=== PATIENT | female | born 1945 | race Caucasian/White ===

== ENCOUNTER → 2017-04-17 | Outpatient (CLI) | payer OTHER, MEDICARE ==
[~2017-04-17] MED LIST: ASPEC325 PO; CALC500C70 PO; FRRG PO; LEVO100T PO; LOSA100T26 PO; RANI150T3 PO; SERT50TA PO; TPRSR/50 PO; VITAMIN D2 PO
--- NOTE | 2017-04-17 14:32 | DIAGNOSTIC IMAGING REPORT ---
LUMBAR SPINE MRI HISTORY: Low back pain. STENOSIS TECHNIQUE: Multiplanar multisequence MRI of the lumbar spine was performed without the use of contrast. COMPARISON: Lumbar spine 04/10/2017 outside hospital. FINDINGS: For the purpose of the report the L5-S1 disc space will be located on axial image 24 of 26. No fracture or subluxation. T1 and T2 hyperintense lesions at T12 and L4 consistent with hemangiomas. These measure 12 mm. Diffuse disc desiccation. Disc spaces are relatively preserved for age. The conus terminates at the L1-L2 disc space level. Moderate facet degenerative changes at L3-L4. Severe facet degenerative changes at L4-5 and L5-S1. Subcutaneous edema within the lumbar region. Mild endplate edema at the superior endplate of L4. This is likely due to long-standing degenerative change. Paraspinal soft tissues are unremarkable. L1-L2: Small broad-based posterior disc bulge without significant central canal or neural foraminal narrowing. L2-L3: Small broad-based posterior disc bulge without significant central canal or neural foraminal narrowing. L3-L4: Small broad-based posterior disc bulge without significant central canal or left-sided neural foraminal narrowing. Mild right-sided neural foraminal narrowing. L4-L5: Small broad-based posterior disc bulge with bilateral facet hypertrophy. No significant central canal or neural foraminal narrowing. Focal central and right paracentral annular tear. L5-S1: No significant central canal or neural foraminal narrowing. IMPRESSION: 1. Moderate to severe facet osteoarthritis within the lower lumbar spine. 2. Minimal to mild degenerative disc disease as described above with a few disc bulges. However, no significant central canal narrowing. Electronically signed by: Srini Harris M.D. 04/17/2017 2:31 PM Dictated Date/Time: 04/17/2017 2:24 PM
== END | disposition home or self-care (01) ==
LOC: C.MRIBC 13:44
PROVIDERS: ATTEND Orthopaedic Surgery Orthopaedic Surgery of the Spine
DX: M48.06 Spinal stenosis, lumbar region (principal); M47.896 Other spondylosis, lumbar region

== ENCOUNTER 2023-12-25 04:59 | Observation (INO) ==
--- NOTE | 2023-12-08 11:54 | PAT Medication Instructions ---
Medication Instructions Date of Service December 08, 2023 Home Medications hydrochlorothiazide 12.5 mg tablet 12.5 mg PO QAM levothyroxine 150 mcg capsule 150 mcg PO QAM losartan 100 mg tablet 100 mg PO QAM metoprolol succinate 100 mg tablet,extended release 24 hr 100 mg PO HS pantoprazole 40 mg tablet,delayed release 40 mg PO HS sertraline 50 mg tablet 50 mg PO QAM acetaminophen 500 mg tablet 500 mg PO Q6H PRN Pain calcium carbonate 300 mg (750 mg) chewable tablet (Tums) 300 mg PO HS cholecalciferol (vitamin D3) 50 mcg (2,000 unit) capsule (Vitamin D3) 50 mcg PO QAM diphenhydramine 25 mg-acetaminophen 500 mg tablet (Tylenol PM Extra Strength) 1 tab PO HS liothyronine 5 mcg tablet 5 mcg PO QAM vitamin A-vitamin C-vit E-min tablet 1 tab PO DAILY STOP taking 2 weeks before surgery (or as soon as possible if surgery is within 2 weeks) vitamin A-vitamin C-vit E-min tablet 1 tab PO DAILY DO NOT take the morning of surgery hydrochlorothiazide 12.5 mg tablet 12.5 mg PO QAM losartan 100 mg tablet 100 mg PO QAM cholecalciferol (vitamin D3) 50 mcg (2,000 unit) capsule (Vitamin D3) 50 mcg PO QAM Take morning of surgery With a small sip of water, OTHERWISE NOTHING TO EAT OR DRINK AFTER MIDNIGHT: levothyroxine 150 mcg capsule 150 mcg PO QAM sertraline 50 mg tablet 50 mg PO QAM acetaminophen 500 mg tablet 500 mg PO Q6H PRN Pain (if needed) liothyronine 5 mcg tablet 5 mcg PO QAM Take evening before surgery metoprolol succinate 100 mg tablet,extended release 24 hr 100 mg PO HS pantoprazole 40 mg tablet,delayed release 40 mg PO HS acetaminophen 500 mg tablet 500 mg PO Q6H PRN Pain (if needed) calcium carbonate 300 mg (750 mg) chewable tablet (Tums) 300 mg PO HS diphenhydramine 25 mg-acetaminophen 500 mg tablet (Tylenol PM Extra Strength) 1 tab PO HS Other Notes If you have any questions please call us at [phone] or [phone] or [phone] or [phone]
--- NOTE | 2023-12-11 14:57 | Anesthesiology Consultation ---
Date of Service December 11, 2023 Assessment & Plan (1) Encounter for pre-operative examination: - Infectious disease screening: Per assessment on 12/11/23: No known infectious disease contacts or current infectious disease symptoms. No noted recent Covid positive test result. - Outpatient joint assessment: Pt currently scheduled for inpatient pathway. If surgeon requests review for outpatient joint pathway, patient is not recommended candidate for outpatient joint program from anesthesia standpoint based upon available information. - Abnormal preop CXR: Notes "3.1 cm right suprahilar density. This is likely artifactual. However, a chest CT is recommended to exclude a pulmonary nodule or lymphadenopathy." > Note written to PCP regarding preop CXR- Awaiting response (Dr. Moises Park). Patient otherwise acceptable risk for surgery. Chart Review Chart Review: Patient seen in Pre Admission Testing Teaching & Discussion Pre-Anesthesia Teaching/Discussion Notes: Instructed NPO after midnight before surgery,except medications with 15 cc of water. Medication instructions provided according to the PAT guidelines. History Surgery Operation Date: 12/25/23 10:40 Proposed Procedures p Right Total Hip Arthroplasty - Chris Archuleta MD Height/Weight Height: 5 ft 5 in Weight: 109.2 kg Allergies Allergy/AdvReac Type Severity Reaction Status Date / Time cephalexin AdvReac Intermediate "Made Verified 12/11/23 14:52 mouth feel funny" prednisone AdvReac Intermediate "makes my Verified 11/27/23 13:18 head feel funny" Medications Home Medications Medication Instructions Recorded Confirmed Last Taken hydrochlorothiazide 12.5 mg tablet 12.5 mg PO QAM 06/04/23 11/27/23 Unknown levothyroxine 150 mcg capsule 150 mcg PO QAM 06/04/23 11/27/23 Unknown losartan 100 mg tablet 100 mg PO QAM 06/04/23 11/27/23 Unknown metoprolol succinate 100 mg 100 mg PO HS 06/04/23 11/27/23 Unknown tablet,extended release 24 hr pantoprazole 40 mg tablet,delayed 40 mg PO HS 06/04/23 11/27/23 Unknown release sertraline 50 mg tablet 50 mg PO QAM 06/04/23 11/27/23 Unknown acetaminophen 500 mg tablet 500 mg PO Q6H PRN Pain 11/27/23 11/27/23 Unknown calcium carbonate (Tums) 300 mg PO HS 11/27/23 11/27/23 Unknown cholecalciferol (vitamin D3) 50 50 mcg PO QAM 11/27/23 11/27/23 Unknown mcg (2,000 unit) capsule (Vitamin D3) diphenhydramine 25 1 tab PO HS 11/27/23 11/27/23 Unknown mg-acetaminophen 500 mg tablet (Tylenol PM Extra Strength) liothyronine 5 mcg tablet 5 mcg PO QAM 11/27/23 11/27/23 Unknown vitamin A-vitamin C-vit E-min 1 tab PO DAILY 11/27/23 11/27/23 Unknown tablet Past Medical History Medical History Anxiety and depression Arthritis of right hip GERD (gastroesophageal reflux disease) History of COVID-19 07/2022- mild symptoms, resolved History of gout Hypertension Hypothyroid Left knee DJD Macular degeneration Exercise / Class Metabolic Activity III < 4 Walking/Shop/Light housework Past Family History Family History Other Arthritis No family history of adverse response to anesthesia Past Surgical History Surgical History H/O hernia repair incisional H/O tubal ligation H/O: hysterectomy KATHIA BSO History of appendectomy History of cardiac cath 2015- no stents History of colonoscopy History of dilatation and curettage History of esophageal dilatation History of esophagogastroduodenoscopy (EGD) History of tooth extraction all teeth removed History of total right knee replacement 2016 Hx of cataract surgery R/L Hx of cholecystectomy Past Anesthesia History No Family Hx of Anesthesia Complications and Other (Awareness with Right TKA) History of PONV No Hx of PONV and No Hx of Motion Sickness Social History Smoking Status: Never smoker Do You Dip or Chew Tobacco: No Hx Alcohol Use: No Hx Substance Use: No substance use type: does not use Review of Systems Rare palpitations. Patient denies chest pain, shortness of breath, fever, chills, cough, wheezing. Physical Exam Vital Signs BP 132/79 P 65 TEMP SP02 95%RA RESP 18 Physical Full cervical extension range of motion. Full TMJ range of motion. TMD 3 finger breaths Mallampati Score 4 (small oral opening) Dentition: upper/lower full dentures Lungs: clear throughout to auscultation Cardiac: regular rate and rhythm, no murmurs noted Spine: normal Carotid arteries: negative bruit Extremities: no LE edema Trace pedal edema Lab Results Anesthesia Preop Results Results Anesthesia Widget: WBC 5.65 K/ul (4.8-10.8) 12/11/23 Hgb 12.0 g/dl (12.0-16.0) 12/11/23 Hct 38.1 % (37.0-47.0) 12/11/23 Plt 290 K/uL (130-400) 12/11/23 PT 10.6 Seconds (9.0-12.0) 12/11/23 PTT 26 Seconds (21-31) 12/11/23 INR 1.0 (0.9-1.1) 12/11/23 Blood Type O Positive 12/11/23 Antibody Screen NEGATIVE 12/11/23 Testing Laboratory Results 10/29/23 SODIUM 142 POTASSIUM 4.7 CHLORIDE 105 CO2 25 BUN 12 CREATININE 0.9 GLUCOSE 90 TSH 0.11L FREE T4 1.5 FREE T3 2.6 Electrocardiogram Date: 12/11/23 NSR with sinus arrhythmia at 69bpm. "Normal ECG" Chest X-Ray Date: 12/11/23 IMPRESSION: 3.1 cm right suprahilar density. This is likely artifactual. However, a chest CT is recommended to exclude a pulmonary nodule or lymphadenopathy. No acute cardiopulmonary findings. Stable mild cardiomegaly.
--- NOTE | 2023-12-19 09:27 | History & Physical Report ---
Date of Service December 19, 2023 Assessment & Plan (1) Arthritis of right hip: 78-year-old female status post right knee replaced in the past with advanced right hip arthritis. She got some left knee DJD 2 but the right hip is bothering the most. She has had to resort to using a cane to get around. She would like to have her hip fixed. Plan: Amparo taken to the operating do a right total hip replacement for the risks Mente this procedure explained the patient clued but not limited to DVT PE infection neurological and vascular bleeding palm pain limb range of motion stiffness fairly her symptoms incomplete relief of symptoms excetra. Patient understands and desires to proceed. Informed consent was obtained. Her chest x-ray initially was abnormal. She got a repeat x-ray at [facility] which was normal. Proceed with a total hip replacement. Will likely use a wound VAC postoperatively due to the soft tissue envelope. Bone looks good but will try a Crye stem but will have a cemented stem available. She is hoping to be discharged to home. One of her sons is going to come and stay with her for couple weeks. Will follow-up with me at 2 weeks postop. (2) Left knee DJD: History of Present Illness Chief Complaint: . Right hip and leg pain. Primary Care Provider: Jeannette Park . Patient is a 78-year-old female who is a status post a right knee replacement back in 2014. She presents now with over a year history of increasing right hip pain discomfort which gradually gotten worse over time. She had been seen by 2 dietitian assistant who diagnosed her just with that degenerative arthritis despite slightly elevated sed rate and CRP. He went through a course of physical therapy which did not help if anything made things worse. As she has had to resort to using a cane for the past year. She is having more trouble living independently as she lives by herself. She would like to have her hip fixed. She does have some left knee pain as well. The right hip bothers him more than the left knee. Allergies Allergy/AdvReac Type Severity Reaction Status Date / Time cephalexin AdvReac Intermediate "Made Verified 12/11/23 14:52 mouth feel funny" prednisone AdvReac Intermediate "makes my Verified 11/27/23 13:18 head feel funny" Home Medications Medication Instructions Recorded Confirmed Type hydrochlorothiazide 12.5 mg tablet 12.5 mg PO QAM 06/04/23 11/27/23 History levothyroxine 150 mcg capsule 150 mcg PO QAM 06/04/23 11/27/23 History losartan 100 mg tablet 100 mg PO QAM 06/04/23 11/27/23 History metoprolol succinate 100 mg 100 mg PO HS 06/04/23 11/27/23 History tablet,extended release 24 hr pantoprazole 40 mg tablet,delayed 40 mg PO HS 06/04/23 11/27/23 History release sertraline 50 mg tablet 50 mg PO QAM 06/04/23 11/27/23 History acetaminophen 500 mg tablet 500 mg PO Q6H PRN Pain 11/27/23 11/27/23 History calcium carbonate (Tums) 300 mg PO HS 11/27/23 11/27/23 History cholecalciferol (vitamin D3) 50 50 mcg PO QAM 11/27/23 11/27/23 History mcg (2,000 unit) capsule (Vitamin D3) diphenhydramine 25 1 tab PO HS 11/27/23 11/27/23 History mg-acetaminophen 500 mg tablet (Tylenol PM Extra Strength) liothyronine 5 mcg tablet 5 mcg PO QAM 11/27/23 11/27/23 History vitamin A-vitamin C-vit E-min 1 tab PO DAILY 11/27/23 11/27/23 History tablet Past Med/Surg History Medical History History of gout Macular degeneration History of COVID-19 07/2022- mild symptoms, resolved 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 Anxiety and depression Hypothyroid GERD (gastroesophageal reflux disease) Hypertension Surgical History History of dilatation and curettage History of esophageal dilatation History of colonoscopy History of appendectomy History of esophagogastroduodenoscopy (EGD) History of tooth extraction all teeth removed History of cardiac cath 2015- no stents H/O tubal ligation H/O hernia repair incisional Hx of cholecystectomy H/O: hysterectomy KATHIA BSO History of total right knee replacement 2016 Hx of cataract surgery R/L Family History Other Arthritis No family history of adverse response to anesthesia Social History Smoking Status: Never smoker Second Hand Exposure: No; Do You Dip or Chew Tobacco: No; Hx Alcohol Use: No Hx Substance Use: No Preferred Language: Thai Communication Ability: Effective Software Support Analyst Required: No Beliefs That Will Affect Care: None Current Living Situation: Alone Feels Safe at Home: Yes Assistive Devices: Denture - Upper, Denture - Lower, Glasses and Walker Review of Systems All systems reviewed & are unremarkable except as noted in HPI & below. Physical Exam . Physical examination was a pleasant elderly female. Examination of right hip reveal patient walks with use of a cane. She does limp on the right side. About a half a centimeter shorter on the right compared to the left. She has pain and stiffness with hip motion. Negative straight leg raise. She is neurologically intact. Examination of the left knee reveals a slight varus alignment to her knee. Got bony perjury medially. Range of motion 5-1 20. No instability. Constitutional WD/WN, vitals as above Neck trachea midline, no thyromegaly Respiratory normal respiratory effort, lungs clear to auscultation Gastrointestinal (Abdomen) normal bowel sounds, soft, nontender, no hepatosplenomegaly Results & Data Results & Data Laboratory Results . Diagnostic Findings . X-rays of the right hip were reviewed. Shows advanced hip arthritis. She got complete loss of the joint space. She got the sclerosis or of the acetabulum. Bone density looks pretty good. Patient did have a chest x-ray which suggested maybe a slight abnormality or nodule. Thought most likely incidental finding. She had a repeat x-ray done at [facility] which is a normal. PG Care Time/CCT Total # of Minutes Spent Total Time Spent with Patient: Total time spent is greater than 50% in coordination of care (as documented) at patient's floor/unit and/or counseling patient: Coding Level of Care Code None Diagnoses Arthritis of right hip M16.11 Left knee DJD M17.12
[2023-12-25] MEDS: LR 500ML BOLUS, THEN 15ML/HR IV SCH (06:10)
[2023-12-25] MEDS: CeleBREX 200 MG CAP PO SCH (06:11)
[2023-12-25] MEDS: ACETAMINOPHEN 500 MG TAB PO SCH ×2 (06:11→11:59)
[2023-12-25] MEDS: FAMOTIDINE 20 MG TAB PO SCH (06:11)
[2023-12-25] MEDS: METOCLOPRAMIDE HCL 10 MG TABLET PO SCH (06:11)
[2023-12-25] MEDS ORDERED: BUPIVACAINE 0.5 % 5 MG/1 ML PF 10ML VIAL ONE (06:19)
[2023-12-25] MEDS ORDERED: MIDAZOLAM HCL 1 MG/ML 2ML VIAL ONE (06:28)
[2023-12-25] MEDS ORDERED: PROPOFOL IV EMULSION 10 MG/ML 20 ML VIAL IV ONE ×2 (06:29→08:06)
[2023-12-25] MEDS ORDERED: PROMETHAZINE HCL 6.25 MG in SODIUM CHLORIDE 0.9% 50 ML IV PRN (06:31)
[2023-12-25] MEDS ORDERED: HYDROmorphone INJ 1 MG/ML SYRINGE IV PRN (06:31)
[2023-12-25] MEDS ORDERED: NALOXONE HCL 0.4 MG/1 ML VIAL/CARP IV PRN ×2 (06:31→10:15)
[2023-12-25] MEDS ORDERED: LABETALOL HCL IV 5 MG/ML 20ML IV PRN (06:31)
[2023-12-25] MEDS ORDERED: FLUMAZENIL 0.1 MG/1 ML 10 ML VIAL IV PRN (06:31)
[2023-12-25] MEDS ORDERED: ATROPINE SULFATE 0.1 MG/ML 10ML SYR IV PRN (06:31)
[2023-12-25] MEDS ORDERED: ePHEDrine sulfate 50 MG/ML AMP IV PRN (06:31)
[2023-12-25] MEDS: dexAMETHasone**PF** 10 MG/ML VIAL IV SCH (06:41)
[2023-12-25] MEDS: TRANEXAMIC ACID 1,000 MG **IV Pre-op IV SCH (06:44)
--- NOTE | 2023-12-25 06:47 | History & Physical Bridge Note ---
Date of Service December 25, 2023 History & Physical Bridge Note I have examined the patient, reviewed the History & Physical and in the interval since the performance of the History & Physical I have noted the following changes of clinical significance: no changes noted
[2023-12-25] MEDS ORDERED: Nursing to Pharmacy Communication SCH ×2 (07:00)
[2023-12-25] MEDS: ceFAZolin 2000MG 2,000 MG/15 ML SYR IV ONE (07:05)
[2023-12-25] MEDS ORDERED: ePHEDrine sulfate 50 MG/5 ML SYR ONE (07:30)
[2023-12-25] MEDS ORDERED: PHENYLEPHRINE 100MCG/ML 10ML SYR IV ONE (07:30)
[2023-12-25] MEDS: BUPIVACAINE/EPINEPHRINE 0.5% MPF 1:200,000 30 ML VIAL ONE (08:11)
--- NOTE | 2023-12-25 08:53 | Operative Report ---
PG Post Operative Report Pre & Post Diagnosis Operation Date: 12/25/23 07:00 Pre-Op Diagnosis: Advanced right hip arthritis Post-Op Diagnosis: Advanced right hip arthritis I identified the patient and participated in the time-out.: Yes Procedure Operation Date: 12/25/23 07:00 Actual Procedures p Right Total Hip Arthroplasty, uncemented(Right) - Chris Archuleta MD Surgeon Chris Archuleta MD Digital Account Director Yovani Quinonez PA-C Estimated Blood Loss 200 Findings Consistent with Post-Op Diagnosis Operative findings reveal a very large soft tissue envelope. She had grade 4 [id number] disease of the femoral head and acetabulum. Small anterior acetabular osteophytes. Specimens Right femoral head sent for pathology. Anesthesia Type Spinal MAC Complications none Disposition Accompanied Patient To Recovery: No Indications Patient is a 78-year-old female who a year history of gradual progressive increasing right hip pain discomfort which became a more painful and unresponsive conservative treatment over time. It was really affecting her ability to maintain an active lifestyle and living independent lifestyle. X- rays show advanced hip arthritis. She elected proceed with total hip arthroplasty. Description of Procedure Operative implants consist of: 1 Biomet G7 size 52 mm acetabular shell. 2. 6.5 cancellous acetabular screws 1 of 35 mm in length and 1 to 20 mm length. 3. [place] hole children librarian. 4. Highly cross-linked polyethylene liner with a 52 mm outer diameter, 36 mm diam with a mcbride placed inferior and posterior. 5. DePuy Corail I size 12 KLA femoral stem. 6. +5/36 mm ceramic articular ball. The patient was taken the operating, identified, placed on the operating table in the supine position but all contact areas were appropriately padded. IV antibiotics tried by anesthesia team. A spinal anesthetic been implemented holding area. Alexander catheter was placed in sterile fashion. Patient then placed in the left lateral decubitus position. An axillary roll was placed. Distal Birkett position was used for positioning. The right hip and leg were then prepped and draped in usual sterile fashion. A posterolateral approach to the right hip was then performed to a curvilinear incision centered over the greater trochanter. Sharp dissection was got through subcutaneous tissue down to the IT band gluteal fascia. The IT band gluteal fascia incised longitudinally in line with skin incision. The underlying greater bursa was excised. The piriformis and external rotators along with the posterior hip joint capsule were then released from the posterior aspect the hip as a single layer. Great care was taken throughout the procedure protect the sciatic nerve at all times. Hip was internally rotated and dislocated. Femoral neck osteotomy cut was made with a Final Cut about a centimeter above the lesser trochanter. Femoral head was removed and sent for pathology. The femur was retracted anteriorly. Attention drawn the acetabulum. The acetabular labrum was excised. The pulmonary fat was excised. Sequential reaming the acetabular was then performed beginning with size 43 and progressing up to a 51. I did ream a little bit with a 52 reamer and then a 52 mm Biomet G7 acetabular shell was then placed in about 4 degrees lateral opening and 20 degrees of anteversion. It was fixed with two 6.5 cancellous acetabular screws. A small anterior osteophyte was removed. Trial liner was placed. Attention drawn the femur. The proximal femur was then with a ToyTalk cutter followed by canal finder. I broached beginning with size 8 and progressing up to a 12. Got excellent fitted to 12. Her hip was and implant was rotationally stable. We then trialed the hip and the +5 articular ball were recreated leg lengths which was felt to be appropriate and appropriate soft tissue tension. It was fully stable full extension and external rotation flexion to 90 degrees internal rotation about 50 degrees. I did elect to place a mcbride inferior and posterior to maximize her stability in flexion. We elect to place these implants. All trial implants were removed. An apex hole children librarian was placed. Highly cross-linked polyethylene liner was placed. A size 12 KLA femoral stem was impacted in position. A +5/36 mm ceramic articular ball was placed. Hip was located and once again found to be stable. Attention drawn toward closing. The wounds irrigated with copious amounts of pulsatile lavage solution. We injected locally with 60 cc of half percent Marcaine with epinephrine. The posterior capsule and external rotators were then repaired through drill holes in the posterior trochanter with #2 Tycron suture. The IT band gluteal fascia then closed in 1 PDS suture in running fashion. Subcutaneous tissues then closed with 3 layers with the deep layer #2 Vicryl suture in the subcu cutaneous middle layer with #1 Vicryl suture in the subcutaneous tissues with 2-0 Dexon suture in a buried interrupted fashion. The skin was closed skin garry. Leg was then cleaned and dried and a Prevena VAC dressing was applied due to the very thick soft tissue envelope. The patient was then transferred to the recovery room in stable condition. Patient tolerated the procedure well and there are no complications. Yovani Quinonez, my physician membership assistant, was present for the entire procedure. His assistance was essential and required for appropriate patient positioning, prepping and draping, surgical exposure, performing the technical details of the operation, placement the implants, closure of the wound, and placement of the sterile bandage. I attest to the content of the Intraoperative Record and any orders documented therein. Any exceptions are noted below.
[2023-12-25] MEDS: ONDANSETRON INJ 2 MG/ML 2 ML VIAL IV PRN (09:32)
[2023-12-25] MEDS: fentaNYL citrate PF 100 MCG/2 ML VIAL IV PRN (09:40)
--- NOTE | 2023-12-25 10:01 | Anesthesiology Progress Note ---
Date of Service December 25, 2023 Anesthesia Post Procedure Vital Signs Vital Signs: Temp Pulse Pulse Resp BP Pulse Ox O2 Del Method 12/25/23 09:50 36.5 C 72 13 132/60 100 Nasal Cannula 12/25/23 09:40 74 21 135/66 97 Nasal Cannula 12/25/23 09:30 78 21 118/50 L 100 Nasal Cannula 12/25/23 09:20 81 21 147/57 H 100 Nasal Cannula 12/25/23 09:10 77 22 119/66 98 Nasal Cannula 12/25/23 09:00 81 17 132/68 100 Nasal Cannula 12/25/23 08:50 80 19 117/71 100 Oxymask 12/25/23 08:42 36.4 C L 88 21 122/74 98 Oxymask 12/25/23 05:48 36.6 C 69 18 164/93 H 96 Room Air O2 Flow Rate 12/25/23 09:50 2 12/25/23 09:40 2 12/25/23 09:30 2 12/25/23 09:20 2 12/25/23 09:10 2 12/25/23 09:00 2 12/25/23 08:50 3 12/25/23 08:42 6 12/25/23 05:48 Pain Intensity Right Hip: Pain Intensity: 3 Transfer of Care Handoff Completed per policy Notes Mental Status: alert / awake / arousable Patient Amnestic to Procedure: Yes Nausea / Vomiting: adequately controlled Pain: adequately controlled Airway Patency, RR, SpO2: stable & adequate BP & HR: stable & adequate Hydration State: stable & adequate Neuraxial Anesthesia: was administered and sensory block is resolving Anesthetic Complications: no major complications apparent
[2023-12-25] MEDS ORDERED: bisacodyL 10 MG SUPP PR PRN (10:15)
[2023-12-25] MEDS ORDERED: METOCLOPRAMIDE HCL INJ 5 MG/ML 2 ML VIAL IV PRN (10:15)
[2023-12-25] MEDS ORDERED: HYDROmorphone INJ 0.5 MG/0.5 ML SYR IV PRN (10:15)
[2023-12-25] MEDS ORDERED: ALUMINUM/MAGNESIUM SUSP 30 ML UDC PO PRN (10:15)
[2023-12-25] MEDS ORDERED: traMADol HCL 50 MG TABLET PO PRN (10:15)
[2023-12-25] MEDS ORDERED: ONDANSETRON INJ 2 MG/ML 2 ML VIAL IV PRN (10:15)
[2023-12-25] MEDS ORDERED: MAGNESIUM HYDROXIDE SUSP 30 ML UDC PO PRN (10:15)
--- NOTE | 2023-12-25 10:17 | XRay Report ---
SINGLE VIEW PELVIS; SINGLE VIEW RIGHT HIP CLINICAL HISTORY: Postoperative examination. FINDINGS: An AP portable view of the hips and pelvis with a crosstable lateral portable view of the r ight hip are compared to study dated 11/23/2023. A bipolar right hip arthroplasty is in near-anatomic alignment. 2 cortical lag screws transfix the acetabular cup. No acute fracture is identified. There are expected postoperative changes overlying the right hip including skin clips, subcutaneous gas, an d soft tissue swelling. Moderate to advanced arthritic changes noted in the left hip. IMPRESSION: Expected postoperative findings status post right hip arthroplasty. No acute fracture is seen. ACT 112: Negative or not required by law. Electronically signed by: Homer Noble M.D. 12/25/2023 10:16 AM
[2023-12-25] MEDS: ceFAZolin 2,000 MG/15 ML IV PUSH IV ONE (11:16)
[2023-12-25] MEDS: LOSARTAN POTASSIUM 50 MG TAB PO SCH (11:57)
[2023-12-25] MEDS: DOCUSATE SODIUM 100 MG CAP PO SCH (11:58)
[2023-12-25] MEDS: MULTIVITAMIN TAB PO SCH (11:58)
[2023-12-25] MEDS: KETOROLAC TROMETHAMINE 15 MG/ML VIAL IV SCH (11:58)
[2023-12-25] MEDS: SERTRALINE HCL 50 MG TABLET PO SCH (11:58)
[2023-12-25] MEDS: ASPIRIN 81 MG ECTAB PO SCH (11:59)
[2023-12-25] MEDS: CHOLECALCIFEROL 25 MCG (1000 UNITS) TAB PO SCH (11:59)
[2023-12-25] MEDS: hydroCHLOROthiazide 25 MG TAB PO SCH (11:59)
[2023-12-25] MEDS: LIOTHYRONINE SODIUM 5 MCG TAB PO SCH (12:50)
[2023-12-25] MEDS: ALLERGY Noted to ORDERED Medication SCH (12:52)
[2023-12-25] MEDS: SENNA 8.6 MG TAB PO SCH ×2 (12:52→21:01)
[2023-12-25] MEDS: SODIUM CHLORIDE 0.9% 1,000 ML IV SCH (13:45)
[2023-12-25] MEDS: ceFAZolin 2000MG 2,000 MG/15 ML SYR IV SCH (15:33)
[2023-12-25] MEDS: TRANEXAMIC ACID / 0.7% NACL 1,000 MG/100 ML BAG IV SCH (15:34)
[2023-12-25] MEDS: CEROVITE ADV FORMULA TAB PO SCH (15:38)
[2023-12-25] MEDS: ASCORBIC ACID 500 MG TAB PO SCH (16:53)
[2023-12-25] MEDS: CALCIUM CARBONATE 1250MG TAB PO SCH (20:59)
[2023-12-25] MEDS: METOPROLOL SUCC 50MG EXT REL TAB PO SCH (21:00)
[2023-12-25] MEDS ORDERED: NON-FORMULARY MEDICATION (Diphenhydramine-Acetaminophen [Tylenol Pm Extra Strength] 25-500 PO SCH (21:00)
[2023-12-25] MEDS: PANTOprazole 40 MG TAB PO SCH (21:00)
[2023-12-26 07:18] LABS: Basophils # (auto) 0.01 K/uL (0.00-0.20); Basophils % (auto) 0.1 %; Hematocrit (blood only) 30.4 % (37.0-47.0); Hemoglobin 9.7 g/dl (12.0-16.0); Immature Granulocytes # (auto) 0.02 K/uL (0.01-0.20); Immature Granulocytes % (auto) 0.3 %; Lymphocytes # (auto) 1.52 K/uL (1.20-3.40); Lymphocytes % (auto) 20.1 %; Mean Corpuscular Hemoglobin 28.8 pg (25.0-34.0); Mean Corpuscular Hgb Conc 31.9 g/dL (32.0-36.0); Mean Corpuscular Volume 90.2 fL (80.0-100.0); Mean Platelet Volume 10.8 fL (9.4-12.4); Monocytes # (auto) 0.61 K/uL (0.11-0.59); Neutrophils # (auto) 5.42 K/uL (1.40-6.50); Neutrophils % (auto) 71.5 %; Platelet Count 211 K/uL (130-400); RDW Coefficient of Variation 14.2 % (11.5-14.5); RDW Standard Deviation 46.6 fL (36.4-46.3); Red Blood Count 3.37 M/uL (4.20-5.40); White Blood Count 7.58 K/ul (4.8-10.8)
--- NOTE | 2023-12-26 07:22 | Surgery Progress Note ---
Date of Service December 26, 2023 Assessment & Plan (1) Status post right hip replacement: Plan: 78-year-old female postop day 1 from right hip replacement. Orthopedically she seems to be doing okay. Has not been through therapy yet. She is hoping to go home today. Hips located. She is neurologically intact. Plan: 1. DVT prophylaxis including thigh-high teds, SCDs, aspirin twice a day. 2. PT/OT. Weight-bear as tolerated right total hip protocol. 3. Pain control doing well with current pain regimen. 4. Wound care. She got a Prevena VAC dressing in place to leave that info on for a week. 5. Disposition she is hoping to be discharged to home. Her boys are pending, take care of her. I will see she does in therapy today Admission and Anticipated Discharge Date Admission Date: December 25, 2023 Subjective 78-year-old female postop day 1 from right hip replacement. She is doing pretty well. Pain is controlled. No chest pain or shortness of breath. Not feeling dizzy or lightheaded. She is hoping to go home today. Physical Exam Physical Exam: Physical examination was a pleasant elderly female. Lying bed looks pretty comfortable. Examination of the right hip reveals a Prevena VAC dressing to be in place. Leg lengths are equal. Thigh is soft and supple. She is neurologically intact. Respiratory: normal respiratory effort, lungs clear to auscultation Cardiovascular: RRR, no murmur, no edema Gastrointestinal (Abdomen): normal bowel sounds, soft, nontender, no hepatosplenomegaly Results & Data Vital Signs (Past 12 Hours) Vital Signs Temp Pulse Resp BP BP Pulse Ox O2 Del Method 12/26/23 07:13 36.7 C 60 16 125/75 94 Room Air 12/26/23 03:58 36.8 C 54 L 16 117/71 94 Room Air 12/25/23 23:00 36.5 C 54 L 16 134/78 96 Room Air 12/25/23 21:00 Room Air Laboratory Results Hemoglobin 9.7. Hematocrit 30.4. Electrolytes are pending PG Care Time/CCT Total # of Minutes Spent Total Time Spent with Patient: Total time spent is greater than 50% in coordination of care (as documented) at patient's floor/unit and/or counseling patient: Coding Level of Care Code 47645 Post Operative Follow-Up Diagnoses Status post right hip replacement Z96.641
[2023-12-26 07:35] LABS: BUN Creatinine Ratio 14.1 (10-20); Calcium 8.8 mg/dl (8.6-10.3); Creatinine Clr Calc Pharmacy 43.3 ml/min; Est GFR (Non-African American) 39.7 ml/min; Potassium 3.6 mmol/L (3.5-5.1)
[2023-12-26] MEDS: AMOXICILLIN 500 MG CAP PO SCH (09:18)
[2023-12-26] MEDS: dexAMETHasone 10 MG in SYRINGE 0 ML IV SCH (09:21)
[2023-12-26] MEDS: LEVOTHYROXINE SODIUM 150 MCG TABLET PO SCH (11:00)
--- NOTE | 2023-12-28 13:40 | Discharge Summary ---
Date of Service December 28, 2023 Discharge Data Procedures Performed Operation Date: 12/25/23 07:00 Actual Procedures p Right Total Hip Arthroplasty, uncemented(Right) - Chris Archuleta MD Hospital Course (1) Status post right hip replacement: This is a 78 year old patient admitted on 12/25/23 and underwent total hip arthroplasty. She tolerated the procedure well and there were no complications. Transferred to the PACU post op and later to the orthopedic floor for further care. She was given ancef for antibiotic prophylaxis. She was also given SPRING stockings, SCDs, and aspirin for DVT prophylaxis. Hemoglobin, hematocrit, and vital signs were monitored during her hospital stay and remained stable. Did not require any blood transfusions. There were no complications during her hospital stay. By post op day #1 the patient was tolerating a regular diet, pain was reasonably controlled with oral pain medicine, and she was participating in physical therapy. On post op day #1 the patient was discharged home and set up with home health care. She was given printed discharge instructions including prescriptions for extra strength tylenol, aspirin, ketorolac, zofran, tramadol, and senokot. Continue physical therapy, weight bearing as tolerated. Continue hip precautions. Continue SPRING stockings. Follow up approximately 2 weeks post op or sooner if there are problems or concerns. Coding Level of Care Code None Diagnoses Status post right hip replacement Z96.641
== END 2023-12-26 12:11 | disposition home health service (06) ==
LOC: ASU 04:59 → 3E 04:59